=== PATIENT | female | born 1940 | race Caucasian/White ===

== ENCOUNTER 2018-07-09 07:56 | Day surgery (SDC) | payer MEDICARE ==
--- NOTE | 2018-07-06 11:14 | HP ---
DATE OF SURGERY: 07/09/2018 ADMISSION DIAGNOSIS: ANTICIPATED PROCEDURES: 1) Removal of port. 2) Excision of three moles right chest, left neck, right shoulder. HISTORY OF PRESENT ILLNESS: PAST MEDICAL HISTORY: ALLERGIES: PER THE CHART. MEDICATIONS: Multiple. PAST SURGICAL HISTORY: Colon surgery. Hysterectomy. SOCIAL HISTORY: Negative. FAMILY HISTORY: Negative. REVIEW OF SYSTEMS: Negative. PHYSICAL EXAMINATION: VITAL SIGNS: Normal. CHEST: Clear. COR: Regular. ABDOMEN: Satisfactory. IMPRESSION: Undesired port. PLAN: Port removal. Also, three lesions desires excision.
[~2018-07-09 07:56] MED LIST: Lactated Ringers 1,000 ML IV ONE; Sodium Chloride 0.9% 1000 ML 1,000 ML ONE; XYLOCAINE 1% HCL 20 ML MDV ONE
[2018-07-09] MEDS ORDERED: Nesacaine 3% -Mpf*** 20ML SDV IJ ONE (07:57)
[2018-07-09] MEDS ORDERED: DEMEROL 50 MG IJ ONE ×2 (07:57)
[2018-07-09] MEDS ORDERED: VERSED 5 MG/5 ML IV ONE (07:57)
[2018-07-09] MEDS: Lactated Ringers 1,000 ML IV SCH (08:06)
[2018-07-09 08:26] VITALS: O2SAT 96
--- NOTE | 2018-07-09 10:53 | OP ---
SURGERY DATE/TIME: 07/09/2018 0940 PREOPERATIVE DIAGNOSES: 1) Four skin lesions (8 mm, 8 mm, 6 mm, 6 mm). 2) Undesired port. POSTOPERATIVE DIAGNOSIS: 1) Four skin lesions (8 mm, 8 mm, 6 mm, 6 mm). 2) Undesired port. PROCEDURES: 1) Port removal. 2) Excision x4 with closure x4. SURGEON: Alex Newby M.D. ANESTHESIA: IV sedation. 15 minutes titrated. COMPLICATIONS: None. CONDITION: Stable. INDICATION: A patient requiring excision of these lesions. DESCRIPTION OF PROCEDURE: IV sedation titrated. Oximetry kept over 90%. Comfort level was satisfactory. She is allergic to lidocaine so chloroprocaine was used. She tolerated this well. The four lesions elliptically excised: 8 mm, 8 mm, 6 mm, 6 mm through somewhere between 1.2 cm and 2 cm elliptical excision with closure. Port was totally removed and closed. Patient tolerated the procedure satisfactorily. Findings discussed with the family in the waiting room.
[2018-07-09 11:31] VITALS: BP 101/61; PULSE 76
== END 2018-07-09 11:32 | disposition home or self-care (01) ==
LOC: SDC 07:56
PROVIDERS: ATTEND Surgery
DX: Z45.2 Encounter for adjustment and management of vascular access device (principal); L82.1 Other seborrheic keratosis
CPT/HCPCS: 88305; J2175; J2250